=== PATIENT | female | born 1945 | race Two or more races ===

== ENCOUNTER 2016-03-22 09:17 | Day surgery (SDC) | payer OTHER, MEDICARE ==
[~2016-03-22 09:17] MED LIST: CEFAZOLIN SODIUM 2 GRAM PREMIX 100 ML IV PRN
[2016-03-22] MEDS ORDERED: LACTATED RINGERS 1,000 ML ONE ×2 (09:20→15:14)
[2016-03-22] MEDS ORDERED: IV START KIT ONE (09:20)
[2016-03-22] MEDS ORDERED: CEFAZOLIN SODIUM 2 GRAM PREMIX 100 ML IV ONE (09:23)
[2016-03-22] MEDS ORDERED: ROPIVACAINE 0.5% 30 ML VIAL ONE (10:57)
[2016-03-22] MEDS ORDERED: NERVE BLOCK PROCEDURAL TRAY 1 EACH ONE (10:57)
[2016-03-22] MEDS ORDERED: BUPIVACAINE 0.25% EPI PF 30 ML VIAL ONE (11:13)
[2016-03-22] MEDS ORDERED: MIDAZOLAM HCL 5 MG/5 ML VIAL ONE (11:16)
[2016-03-22] MEDS ORDERED: FENTANYL 5 ML ONE (11:16)
[2016-03-22] MEDS ORDERED: MEPERIDINE 25 MG/ML SYRINGE IV PRN (13:26)
[2016-03-22] MEDS ORDERED: HYDRALAZINE HCL 20 MG/1 ML VIAL IV PRN (13:26)
[2016-03-22] MEDS ORDERED: ATROPINE SULFATE 0.4 MG/1 ML VIAL IV PRN (13:26)
[2016-03-22] MEDS ORDERED: HYDROMORPHONE HCL 1 MG/ML SYRINGE IV PRN ×2 (13:26→15:47)
[2016-03-22] MEDS ORDERED: NALOXONE HCL 0.4 MG/ML VIAL IV PRN (13:26)
[2016-03-22] MEDS ORDERED: ON-Q PUMP/ROPIVACAINE 0.2% 400 ML in PREMIX BAG 1 EACH NB PRN (13:26)
[2016-03-22] MEDS ORDERED: ONDANSETRON 4 MG/2ML 2 ML VIAL IV PRN (13:26)
[2016-03-22] MEDS ORDERED: LACTATED RINGERS 1,000 ML IV SCH ×2 (13:30→15:47)
[2016-03-22] MEDS ORDERED: ON-Q PUMP/ROPIVACAINE 0.2% 450 ML ONE (14:47)
[2016-03-22] MEDS ORDERED: ROCURONIUM BROMIDE 10 MG/ML DOSE IV ONE (14:54)
[2016-03-22] MEDS ORDERED: PROPOFOL 20 ML IV ONE (14:54)
[2016-03-22] MEDS ORDERED: ONDANSETRON 4 MG/2ML 2 ML VIAL ONE (15:07)
[2016-03-22] MEDS ORDERED: HYDROMORPHONE HCL 2 MG TABLET PO PRN (15:47)
[2016-03-22] MEDS ORDERED: DIPHENHYDRAMINE HCL 50 MG/1 ML VIAL IV PRN (15:47)
--- NOTE | 2016-03-22 15:52 | RAD ---
Exam: Single view right shoulder COMPARISON: 09/02/2015 INDICATION: Status post rotator cuff repair surgery. Findings: A single AP view of the right shoulder was obtained. Alignment is normal. Numerable surgical clips are present within the right neck. Several artifacts overlie the patient. No radiopaque foreign body is identified. Visualized right hemithorax otherwise remarkable. IMPRESSION: Unremarkable single view right shoulder post rotator cuff repair.
--- NOTE | 2016-03-22 16:12 | PCMBPN ---
Brief Post Op Note: Date of Procedure: 03/22/16 Start Time: 1300 Preoperative Diagnosis: 1. right shoulder rotator cuff tear Postoperative Diagnosis: 1. Same Procedure: right shoulder subacromial decompression and rotator cuff repair Surgeon: Ronald Westbrook MD Assist: Jerry Jama PA-C Anesthesia: Eunice Light Findings: as above Condition: stable to PACU Complications: none IV Fluids: 1200 mLs of LR Urine Output: 150 mLs Estimated Blood Loss: 100 mLs Tourniquet Time: none Specimens: none Implants: 4 swivelocks (speed bridge) Drains: none Ronald Westbrook MD
--- NOTE | 2016-03-23 12:03 | OP ---
Mary PATTEN : 1945 [id number] DATE OF SERVICE: March 22, 2016 PREOPERATIVE DIAGNOSIS: Right shoulder rotator cuff tear. POSTOPERATIVE DIAGNOSIS: Right shoulder rotator cuff tear. PROCEDURE PERFORMED: RIGHT SHOULDER SUBACROMIAL DECOMPRESSION AND ROTATOR CUFF REPAIR. SURGEON: Ronald Westbrook M.D. INDUSTRIAL TRAINING SPECIALIST: Jerry Jama P.A.-C. ANESTHESIA: Courtney PaigeNMary SPECIMENS: No material was sent to the laboratory. ESTIMATED BLOOD LOSS: 100 mL FLUIDS REPLACED: 1200 mL of crystalloid. URINE OUTPUT: 150 mL IMPLANTS: Were four SwiveLocks and a SpeedBridge approach. INDICATIONS: This is a 70-year-old female with persistent right shoulder pain who has failed to improve with nonoperative measures. She has physical exam and radiographic findings, which are suggestive of a rotator cuff tear in the right shoulder. Risks, benefits and alternatives of a right shoulder rotator cuff repair and subacromial decompression were discussed at length with the patient and she elected to proceed with surgery. Informed consent was obtained and documented in the chart. The patient was placed on the schedule the first available convenience. DESCRIPTION OF PROCEDURE: The patient was identified in the pre-operative holding area where she was marked with an indelible marker by the operating surgeon. She underwent a regional block and then was taken to the operating room where she succumbed to general anesthesia after being placed in a supine position on the operating room table. All bony prominences were padded and she was repositioned to an upright beach chair position. She received perioperative antibiotics and she was prepped and draped in the usual sterile fashion for surgery. An operative time out was performed and confirmed by all members of the operative team. A standard posterior portal was created and a 30 degree viewing arthroscope was inserted in the glenohumeral joint. Optics were directed anteromedially and then anterior portal was localized with a spinal needle and then created and a standard fashion. A 7 mm cannula was inserted through the anterior portal to allow for instrumentation of the shoulder joint. A probe was inserted through the anterior portal and a diagnostic arthroscopy was performed with the following findings: Superior, anterior and posterior labrum were intact. Biceps tendon showed some mild injection but nothing suggestive of significant bicipital pathology. There was a tear of the posterior portion of the supraspinatus that was U-shaped and retracted partially. It was full thickness. The infraspinatus, subscapularis and teres appeared to be intact. The chondral surfaces of the glenoid and humeral head were intact. At this point the probe was exchanged for an arthroscopic resector shaver which was used to perform a partial debridement of the ragged edge of the rotator cuff tear, preparing it for later repair. The location of the tear was also tagged with a Prolene suture passed through a percutaneous spinal needle. The camera was redirected in the subacromial space and the lateral portal was created. The arthroscopic shaver was inserted through the lateral portal and used to perform a subacromial bursectomy. A passport soft cannula was placed into the lateral portal. The combination of the shaver and the radiofrequency ablator were used to complete the subacromial bursectomy and then this was exchanged for a bur which was used to perform a subacromial decompression removing the subacromial spur that was noted on preoperative imaging. The arm was repositioned to allow for visualization of the rotator cuff tear in the subacromial space and the shaver was again used to begin cleanup the edge and to prepare a bed for the placement or our anchors for the cuff repair. The anterior cannula was redirected in the subacromial space and then through the lateral portal we placed two preloaded SwiveLocks along the medial row at the articular margin. These were passed through the substance of the rotator cuff using the scorpion and then crossed and anchored into a lateral row using SwiveLocks with a SpeedBridge approach. The arm was placed into abduction during this to allow us to bring the cuff down to its [place] footprint. At this point we cut off the excess sutures, inspected the cuff repair and it appeared adequate. We redirected the camera into the intra-articular glenohumeral space and inspected the cuff from the articular side and this appeared to be well apposed to the greater tuberosity. At this point we felt that we had addressed the patient's intra-articular pathology so the camera and instruments were removed from the shoulder. Portal sites were closed with #4-0 Nylon. The patient was placed into a shoulder immobilizer within abduction pillow. The drapes were removed. The patient was awakened from her anesthesia and extubated in the operating room and transferred to a stretcher and taken postoperatively to the postanesthesia care unit in stable condition. There were no observed intraoperative complications during this procedure. Job [id number] cc: Ronald Westbrook M.D.
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
== END 2016-03-22 19:04 | disposition home or self-care (01) ==
LOC: SDC 09:17
PROVIDERS: ATTEND Orthopaedic Surgery
PROC: 0LQ14ZZ Repair Right Shoulder Tendon, Percutaneous Endoscopic Approach (ICD-10-PCS; principal; 2016-03-22)
PROC: 0RNJ4ZZ Release Right Shoulder Joint, Percutaneous Endoscopic Approach (ICD-10-PCS; 2016-03-22)
DX: S46.011A Strain of muscle(s) and tendon(s) of the rotator cuff of right shoulder, initial encounter (principal); I10 Essential (primary) hypertension; E07.9 Disorder of thyroid, unspecified; D64.9 Anemia, unspecified; J45.909 Unspecified asthma, uncomplicated; I25.2 Old myocardial infarction; Z88.8 Allergy status to other drugs, medicaments and biological substances; Z88.5 Allergy status to narcotic agent; Z88.2 Allergy status to sulfonamides
CPT/HCPCS: 29827; 29826; 73020; J3010; J2795 ×3; J2250; J2405; J7120 ×2; A4306; J0690

== ENCOUNTER 2016-05-17 09:57 | Day surgery (SDC) | payer OTHER, MEDICARE ==
[~2016-05-17 09:57] MED LIST changes: -CEFAZOLIN SODIUM 2 GRAM PREMIX 100 ML IV PRN; +IV START KIT ONE; +LACTATED RINGERS 1,000 ML IV SCH; +LACTATED RINGERS 1,000 ML ONE
[2016-05-17] MEDS ORDERED: PROPOFOL 20 ML IV ONE (10:36)
[2016-05-17 15:21] LABS: HELICOBACTER PYLORII DETECTION NEGATIVE (NEGATIVE)
--- NOTE | 2016-05-22 13:52 | SURGPATH ---
[facility] [address] [place] [id number] Patient Name: AMADO PATTEN MR#: [id number] : 1945 Gender: F Specimen #: [id number] Collected: 05/17/2016 Received: 05/19/2016 Reported: 05/22/2016 Submitting Phys: EVERETTE SHEPPARD Copy To Phys: [facility] Clinical History / Pre-Operative Diagnosis: Epigastric pain, history of Desir's, rule out; Desir's, esophagitis, gastritis Specimen Source / Surgical Procedure Performed: #1 stomach antrum biopsy, #2 esophagus biopsy at 38 cm Interpretation: 1. STOMACH, BIOPSY: - GASTRIC MUCOSA WITH NO DIAGNOSTIC ABNORMALITY 2. ESOPHAGUS, 38 CM, BIOPSY: - INTESTINAL METAPLASIA CONSISTENT WITH DESIR'S ESOPHAGUS, NEGATIVE FOR DYSPLASIA Electronically Signed Out Vicki Jama M.D. Gross Description: 1. The specimen is received in formalin labeled with the patient's name and "stomach". The specimen consists of a single fragment of doran soft tissue, 0.6 cm in greatest dimension. Submitted in toto in one cassette 2. The specimen is received in formalin labeled with the patient's name and "esophagus". The specimen consists of two fragments of doran soft tissue each is 0.4-0.5 cm in greatest dimension. Submitted in toto in one cassette ANA Quevedo Microscopic Description: 1. Sections show fragments of gastric mucosa. There is normal mucosal architecture and no significant inflammation. No Helicobacter organisms are identified and there is no intestinal metaplasia or dysplasia. 2. Sections show tissue from the squamocolumnar junction. There is mild active inflammation and intestinal metaplasia. No dysplasia is present. 1: 83529 2: 43481, 3126F K22.70
== END 2016-05-17 11:48 | disposition home or self-care (01) ==
LOC: SDC 09:57
PROVIDERS: ATTEND Internal Medicine Gastroenterology
PROC: 0DB68ZX Excision of Stomach, Via Natural or Artificial Opening Endoscopic, Diagnostic (ICD-10-PCS; principal; 2016-05-17)
PROC: 0DB48ZX Excision of Esophagogastric Junction, Via Natural or Artificial Opening Endoscopic, Diagnostic (ICD-10-PCS; 2016-05-17)
DX: K21.0 Gastro-esophageal reflux disease with esophagitis (principal); K29.70 Gastritis, unspecified, without bleeding; K29.80 Duodenitis without bleeding; I25.10 Atherosclerotic heart disease of native coronary artery without angina pectoris; F03.90 Unspecified dementia, unspecified severity, without behavioral disturbance, psychotic disturbance, mood disturbance, and anxiety; I10 Essential (primary) hypertension; E03.9 Hypothyroidism, unspecified; F45.0 Somatization disorder; Z88.5 Allergy status to narcotic agent; Z88.8 Allergy status to other drugs, medicaments and biological substances; Z88.2 Allergy status to sulfonamides; Z79.82 Long term (current) use of aspirin
CPT/HCPCS: 87081; 43239; J7120